=== PATIENT | male | born 1950 | race Caucasian/White ===

== ENCOUNTER 2019-01-11 07:55 | Day surgery (SDC) | payer MEDICARE, MEDICAID ==
[~2019-01-11] VITALS: Ht 182.9 cm; Wt 81.1 kg
[2019-01-11] VITALS (8 sets, daily range): BP systolic 115–126; BP diastolic 69–87
[2019-01-11] MEDS ORDERED: albumin 25% 100mL bottle x 1 IV PRN (08:15)
[2019-01-11] MEDS ORDERED: normal saline 1000ml 1,000 ML IV PRN (08:15)
[2019-01-11] MEDS ORDERED: FLO0.4C PO (08:18)
[2019-01-11] MEDS ORDERED: SPIR50TA5 PO (08:18)
[2019-01-11] MEDS ORDERED: OXYC10TA47 PO (08:18)
[2019-01-11] MEDS ORDERED: LIDOcaine 1% 30ml preserv. free vial SQ ONE (10:00)
[2019-01-11 10:50] LABS: ALBUMIN,BODY FLUID 1.8 G/DL; TOTAL PROTEIN,BODY FLUID 3.1 G/DL
== END 2019-01-11 11:00 | disposition home or self-care (01) ==
LOC: SSTAY O 07:55
PROVIDERS: ATTEND Radiology Diagnostic Radiology
DX: K70.31 Alcoholic cirrhosis of liver with ascites (principal); I48.91 Unspecified atrial fibrillation; Z79.899 Other long term (current) drug therapy; Z80.51 Family history of malignant neoplasm of kidney
CPT/HCPCS: 49083; 82042; 84157; C1729; J3490; J7030; P9047

== ENCOUNTER 2019-03-27 07:52 | Day surgery (SDC) | payer MEDICARE, MEDICAID ==
[~2019-03-27] VITALS: Ht 185.4 cm; Wt 74.7 kg
[~2019-03-27 07:52] MED LIST: FLO0.4C PO; OXYC10TA47 PO; SPIR50TA5 PO
[2019-03-27 08:15] VITALS: BP 124/67
[2019-03-27] MEDS ORDERED: albumin 25% 100mL bottle x 1 IV PRN (08:20)
[2019-03-27] MEDS ORDERED: normal saline 1000ml 1,000 ML IV PRN (08:20)
[2019-03-27 08:46] VITALS: BP 119/70
[2019-03-27 09:00] VITALS: BP 99/56
[2019-03-27 09:15] VITALS: BP_SYST 10; BP_SYST 101; BP_DIAS 50
== END 2019-03-27 09:20 | disposition home or self-care (01) ==
LOC: SSTAY O 07:52
PROVIDERS: ATTEND Radiology Vascular & Interventional Radiology
DX: K70.31 Alcoholic cirrhosis of liver with ascites (principal)
CPT/HCPCS: 49083; C1729; J7030

== ENCOUNTER 2019-08-06 07:24 | Day surgery (SDC) | payer MEDICARE, MEDICAID ==
[~2019-08-06] VITALS: Ht 188 cm; Wt 84.7 kg
[2019-08-06] VITALS (8 sets, daily range): BP systolic 107–143; BP diastolic 63–111
[2019-08-06] MEDS ORDERED: normal saline 1000ml 1,000 ML IV PRN (07:50)
[2019-08-06] MEDS ORDERED: SPIR100T5 PO (07:54)
[2019-08-06] MEDS: albumin 25% 100mL bottle x 1 IV PRN ×2 (09:29→09:36)
== END 2019-08-06 10:35 | disposition home or self-care (01) ==
LOC: SSTAY O 07:24
PROVIDERS: ATTEND Radiology Vascular & Interventional Radiology
DX: K70.31 Alcoholic cirrhosis of liver with ascites (principal); I50.9 Heart failure, unspecified; I48.91 Unspecified atrial fibrillation; Z79.899 Other long term (current) drug therapy; Z98.890 Other specified postprocedural states
CPT/HCPCS: 49083; C1729; J7030; P9047

== ENCOUNTER 2019-10-22 10:18 | Day surgery (SDC) | payer MEDICARE, MEDICAID ==
[~2019-10-22] VITALS: Ht 185.4 cm; Wt 72.7 kg
[~2019-10-22 10:18] MED LIST changes: +SPIR100T5 PO; -SPIR50TA5 PO
[2019-10-22 10:22] VITALS: BP 125/75
[2019-10-22] MEDS ORDERED: MIDAZolam 5mg/5ml vial ONE (11:00)
[2019-10-22] MEDS ORDERED: fentaNYL/PF 50MCG/1 ML 2ML syringe ONE ×2 (11:00)
[2019-10-22] MEDS ORDERED: LIDOcaine Viscous 15ml cup ONE (11:01)
[2019-10-22 11:19] VITALS: BP 110/75
[2019-10-22] MEDS ORDERED: OXYC15TA88 PO (11:24)
[2019-10-22] MEDS ORDERED: PANT40TA4 PO (11:25)
[2019-10-22 11:29] VITALS: BP 95/67
[2019-10-22 11:39] VITALS: BP 100/63
[2019-10-22 11:49] VITALS: BP 111/59
[2019-10-22 11:59] VITALS: BP 103/68
== END 2019-10-22 12:10 | disposition home or self-care (01) ==
LOC: GI LAB 10:18
PROVIDERS: ATTEND Internal Medicine Gastroenterology
DX: I85.00 Esophageal varices without bleeding (principal); K76.6 Portal hypertension; K31.89 Other diseases of stomach and duodenum; K92.2 Gastrointestinal hemorrhage, unspecified
CPT/HCPCS: 43235; J2250; J3010; J7040; 99152; A4620

== ENCOUNTER 2019-12-11 06:30 | Day surgery (SDC) | payer MEDICARE, MEDICAID ==
[~2019-12-11] VITALS: Ht 188 cm; Wt 74.2 kg
[~2019-12-11 06:30] MED LIST changes: -OXYC10TA47 PO; +OXYC15TA PO; +PANT40TA4 PO
[2019-12-11] MEDS ORDERED: albumin 25% 100mL bottle x 1 IV PRN (07:00)
[2019-12-11] MEDS ORDERED: normal saline 1000ml 1,000 ML IV PRN (07:00)
[2019-12-11 07:30] VITALS: BP 102/62
[2019-12-11 08:45] VITALS: BP 100/64
[2019-12-11 09:00] VITALS: BP 107/57
[2019-12-11 09:15] VITALS: BP 114/62
[2019-12-11 09:30] VITALS: BP 107/63
[2019-12-11 09:45] VITALS: BP 114/54
== END 2019-12-11 10:15 | disposition home or self-care (01) ==
LOC: SSTAY O 06:30 → MED 3N 06:36 → SSTAY O 10:15
PROVIDERS: ATTEND Radiology Vascular & Interventional Radiology
DX: K70.31 Alcoholic cirrhosis of liver with ascites (principal); I50.9 Heart failure, unspecified; I48.91 Unspecified atrial fibrillation; G89.29 Other chronic pain; Z79.891 Long term (current) use of opiate analgesic; Z98.890 Other specified postprocedural states; Z79.899 Other long term (current) drug therapy
CPT/HCPCS: 49083; C1729; P9047

== ENCOUNTER 2020-11-28 08:15 | Day surgery (SDC) | payer MEDICARE, MEDICAID ==
[2020-11-28] VITALS (7 sets, daily range): BP systolic 89–125; BP diastolic 48–71
[~2020-11-28] VITALS: Ht 188 cm; Wt 71.8 kg
[~2020-11-28 08:15] MED LIST changes: -PANT40TA4 PO; +PANT40TA54 PO
[2020-11-28] MEDS ORDERED: FURO-149 PO (08:34)
[2020-11-28] MEDS ORDERED: ASCO500C18 PO (08:35)
[2020-11-28] MEDS ORDERED: FERR325T28 PO (08:35)
[2020-11-28] MEDS ORDERED: albumin 25% 100mL bottle x 1 IV PRN (08:40)
== END 2020-11-28 10:10 | disposition home or self-care (01) ==
LOC: SSTAY O 08:15
PROVIDERS: ATTEND Radiology Vascular & Interventional Radiology
DX: K70.31 Alcoholic cirrhosis of liver with ascites (principal); I48.91 Unspecified atrial fibrillation; M54.5 Low back pain; G89.29 Other chronic pain; I50.9 Heart failure, unspecified; Z98.890 Other specified postprocedural states; Z79.899 Other long term (current) drug therapy; Z85.528 Personal history of other malignant neoplasm of kidney
CPT/HCPCS: 49083

== ENCOUNTER 2021-01-29 07:48 | Day surgery (SDC) | payer MEDICARE, MEDICAID ==
[~2021-01-29] VITALS: Ht 188 cm; Wt 70.8 kg
[2021-01-29] VITALS (7 sets, daily range): BP systolic 101–128; BP diastolic 60–89
[~2021-01-29 07:48] MED LIST changes: +ASCO500C18 PO; +FERR325T28 PO; +FURO-149 PO; -SPIR100T5 PO
[2021-01-29] MEDS ORDERED: normal saline 1000ml 1,000 ML IV PRN (08:15)
[2021-01-29] MEDS ORDERED: albumin 25% 100mL bottle x 1 IV PRN (08:15)
== END 2021-01-29 11:35 | disposition home or self-care (01) ==
LOC: SSTAY O 07:48
PROVIDERS: ATTEND Radiology Vascular & Interventional Radiology
DX: K70.31 Alcoholic cirrhosis of liver with ascites (principal); I48.91 Unspecified atrial fibrillation; Z79.891 Long term (current) use of opiate analgesic; Z98.890 Other specified postprocedural states; Z79.899 Other long term (current) drug therapy
CPT/HCPCS: 49083; P9047